=== PATIENT | female | born 1955 | race Caucasian/White ===

== ENCOUNTER 2025-07-02 09:26 | Emergency (ER) | payer OTHER, SELFPAY ==
[2025-07-02 09:28] VITALS: BP 142/83; PULSE 73; RESP 19; TEMP 36.7; O2SAT 96
[2025-07-02 09:48] VITALS: PULSE 82; BMI 25.9
--- NOTE | 2025-07-02 09:48 | EKG_ITS ---
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
--- NOTE | 2025-07-02 10:00 | PC.NURSE ---
PATIENT CAME IN FROM THE COURT HOUSE VIA EMS FOR POSSIBLE SEIZURE ACTIVITY FOR A FEW SECONDS. PER OFFICER PT WAS AT COURT AND BEGAN TO SHIVER, APPEARED TO BE COLD. NEGATIVE LOC. NEGATIVE TRAUMA. PER PT SHE HAS SEIZURES WHEN HER BLOOD SUGAR IS LOW. BLOOD SUGAR NOTED BY EMS TO BE 211. PT ALERT AND ORIENTED. C/O ABD PAIN 7/10 ON PAIN SCALE. PAIN TO OLD PEG TUBE INSERTION AREA. PT STATES SHE IS DUE FOR HER METHADONE DOSE TODAY. MD REQUEST TO OBTAIN DOSAGE FOR HER METHADONE. NO DISTRESS NOTED.
--- NOTE | 2025-07-02 10:12 | EDNOTE_ITS ---
ED General RME/HPI General Chief complaint: Seizure Stated complaint: POSS SEIZURE Time Seen by Provider: 07/02/25 10:06 Arrival date/time: 07/02/25 09:26 RME / HPI RME / HPI narrative: MAIN ED EVALUATION, Dr. Gregory 1005h: 69-year-old female presented via emergency medical services for evaluation of malaise and shivering noted this morning while at court. History was obtained from EMS. Patient reports feeling alternately hot and cold, with chills and chronic LUQ abdominal pain that feels worse since last night. 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 Is on Methadone maintenance therapy with last dose administered yesterday via the [facility] [place]. Missed doses several doses prior to this due to incarceration. Related Data Allergies Allergy/AdvReac Type Severity Reaction Status Date / Time No Known Allergies Allergy Verified 07/02/25 10:42 Review of Systems Review of Systems Systems Reviewed: All systems reviewed, normal except as documented Past Medical History Past Medical History NEUROLOGIC: Positive Seizures (WITH LOW BS PER PT) GASTROINTESTINAL: Positive Gastrointestinal Disorders (G TUBE/REMOVED X1 YEAR AGO. PT TAKES PO FOOD/MEDS) Social History SMOKING STATUS: Former smoker ED Exam Narrative Physical exam: General: Resting in bed, mildly uncomfortable. Eyes: Appear normal with no scleral icterus. HENT: Atraumatic head exam; mucous membranes moist. Neck: Tracheostomy wound present; no actual trach device present. Cardiac: Heart rate and rhythm normal. Respiratory: Lungs generally clear. Abdomen: Abdomen soft with mild tenderness to bilateral upper abdomen, no rebound. Skin: No exanthems, no cyanosis, no diaphoresis. Neurologic: No altered mental status, speech is fluent. Psychological: Cooperative and participatory with examination. Course Course Course Narrative: 1140h: Patient's labs reviewed with no significant acute concerning abnormalitie s. Patient does have history of CKD in the past. Patient will be given dose of her methadone today. We did call [facility] to confirm dosing with recommendation to administer dose of 89 mg today. She received dose of 95 mg yesterday. Current plan for addiction treatment center is to decrease dose by 6 mg daily until patient is weaned off. He is otherwise vitally stable with no concerning findings on exam either. Is to be discharged back to police care with recommendations for further dosing of her methadone per JALIL. Quality Measures none Orders Category Date Time Status EKG (ED ONLY) *Do not use* NOW Care 07/02/25 09:48 Completed EKG (ED Only) Stat Exams 07/02/25 09:48 Draft CBC Stat Lab 07/02/25 10:16 Completed CMP [Comprehensive Metabolic Panel] Stat Lab 07/02/25 10:16 Completed CRP [C-Reactive Protein] Stat Lab 07/02/25 10:16 Completed Methadone Med 07/02/25 11:15 Discontinued 89 mg PO X1 ONE Vital Signs Vital signs: Vital Signs Temperature 98.1 F 07/02/25 09:28 Pulse Rate 73 07/02/25 09:28 Respiratory Rate 19 07/02/25 09:28 Blood Pressure 142/83 H 07/02/25 09:28 Pulse Oximetry (%) 96 07/02/25 09:28 Oxygen Delivery Method Room Air 07/02/25 09:28 Pulse ox is 96% on room air which is adequate. Discharge Plan Plan Patient Disposition: Half-Way/Court/Law Patient condition on transfer: Stable Prescriptions/Referrals Referrals: No Primary/Family,Physician [Primary Care Provider] - In 1 week Problem List Clinical Impression: Malaise, CKD (chronic kidney disease), Methadone use Patient/Caregiver Discharge Instructions Education Materials: Coping with Kidney Failure Additional Instructions: Further methadone dosing per JALIL. Dose given today was 89mg. Plan per discussion with JALIL is to decrease dosing by 6mg daily until weaned off methadone. Some general health principles that can help you are the NEW START principles: Nutrition (eat a plant-based diet, avoiding meats in general, avoiding highly processed foods) Exercise (Daily exercise/walks as tolerated) Water (Drink adequate fresh water to maintain hydration, concentrating on water rather than on soda, coffee, tea, juice, etc for hydration) [place] (Spend time - 15-20 minutes or so with skin exposed in the java sybase developer and late evening sun for Vitamin D health benefits) [place] (Avoid alcohol, illicit drugs, caffeinated beverages, smoking, etc) Air (Deep breathing exercises in the early mornings in fresh air) Rest (Adequate rest at night, going to bed a few hours before midnight and avoiding all screens/television/loud music in the time right before going to bed, also avoiding heavy meals just prior to going to bed) Trust in God (Spend time daily in Bible study and prayer - health benefits in contemplation of God's true character) Additional resources that can benefit: www.[employer], look under resources and seminars. Another good website is www.Contrib Print Language: Yoruba MDM Clinical Information Provided by: patient and EMS Medical Records reviewed [facility] and EMS Meds/Rx considered, not ordered None Labs/Rad/Tests considered, not ordered None Chronic Illness/Social Conditions which may negatively complicate care or outcome(s)-explain: None or not applicable EKG Interpretation EKG #1: EKG Interpretation: EKG @ 09:50h. Interpreted by me. Labs Labs: see narrative above Medication Administration(s) Medication Administration History Discontinued Medications Methadone HCl (Methadone Solution 1 Mg/1 Ml) 89 mg PO X1 ONE Stop: 07/02/25 11:16 See above
[2025-07-02 10:22] LABS: Basophils # (Auto) 0.1 Thou/mm3 (0.0-0.2); Basophils % (Auto) 1 % (0-2.5); Eosinophils # (Auto) 0.1 Thou/mm3 (0.0-0.5); Eosinophils % (Auto) 1 % (0-10); Hematocrit 37.0 % (36.0-46.0); Hemoglobin 12.5 g/dL (12.0-16.0); Immature Granulocytes Auto 0.05 Thou/mm3 (0.00-0.00); Lymphocytes # (Auto) 1.9 Thou/mm3 (1.0-4.8); Lymphocytes % (Auto) 15 % (10-50); Mean Corpuscular HGB Conc 33.8 g/dl (31.0-37.0); Mean Corpuscular Hemoglobin 28.2 pg (25.0-35.0); Mean Corpuscular Volume 83 fL (80-100); Monocytes # (Auto) 1.0 Thou/mm3 (0.0-0.8); Monocytes % (Auto) 8 % (0-12); Neutrophils # (Auto) 9.7 Thou/mm3 (1.8-7.7); Neutrophils % (Auto) 76 % (37-80); Nucleated Red Blood Cell # 0.00 Thou/mm3 (0.00-0.00); Nucleated Red Blood Cell % 0 /100 WBC (0); Platelet Count 265 Thou/mm3 (140-440); RDW Standard Deviation 42.0 fL (36.4-46.3); Red Blood Count 4.44 Miln/mm3 (4.00-5.20); White Blood Count 12.8 Thou/mm3 (3.6-11.0)
--- NOTE | 2025-07-02 10:24 | PC.NURSE ---
spoke with Ronit at [facility] states patient on methadone tapering dose by 6mg daily until off medication. Patient's last dose was 95mg po, today should be at 89mg, Dr. Gregory made aware.
[2025-07-02 10:52] LABS: Alanine Aminotransferase 17 U/L (10-49); Albumin, Serum 4.3 gm/dL (3.4-4.8); Albumin/Globulin Ratio 1.5 (1.2-2.2); Alkaline Phosphatase 125 U/L (46-116); Anion Gap 12 (7-16); Aspartate Amino Transferase 26 U/L (0-34); BUN/Creatinine Ratio 11 Ratio (12-20); Bilirubin,Total 0.2 mg/dL (0.3-1.2); Blood Urea Nitrogen 25 mg/dL (9-23); C-Reactive Protein < 0.5 mg/dL (0.0-0.9); Calcium 8.7 mg/dL (8.3-10.6); Calcium (Corrected) 8.7 mg/dL (8.5-10.1); Carbon Dioxide 21.1 mMol/L (20.0-31.0); Chloride 105 mMol/L (98-107); Creatinine (Component) 2.3 mg/dL (0.6-1.3); Estimated Creatinine Clearance 20.6 mL/min (>60); Globulin 2.9 gm/dL (2.3-3.5); Glucose 236 mg/dL (74-106); Osmolality,Calculated 288 (275-295); Potassium 4.0 mMol/L (3.4-5.1); Sodium 138 mMol/L (136-145); Total Protein 7.2 gm/dL (5.7-8.2); eGFR 23 See Note
[2025-07-02] MEDS: METHADONE SOLUTION 1 MG/1 ML 89 MG PO (11:52)
[2025-07-02 12:06] VITALS: BP 167/41; PULSE 88; RESP 23; TEMP 36.7; O2SAT 99
== END 2025-07-02 12:52 ==
PROVIDERS: Emergency Provider Family Medicine
DX: R56.9 Unspecified convulsions (principal); F11.90 Opioid use, unspecified, uncomplicated; N18.9 Chronic kidney disease, unspecified
CPT/HCPCS: 36415; 80053; 85025; 86140; 93005; 99283; A9270